=== PATIENT | male | born 1970 | race Caucasian/White ===

== ENCOUNTER → 2018-08-31 15:26 | Outpatient (REF) | payer OTHER, SELFPAY ==
[2018-08-31 15:47] LABS: Influenza A and B by PCR Rapid Negative (Negative)
== END ==
LOC: LAB 15:26
PROVIDERS: Family Provider Family Medicine; PCP Family Medicine; Visit Provider Family Medicine
DX: R50.9 Fever, unspecified (principal)
CPT/HCPCS: 87400

== ENCOUNTER → 2020-11-04 08:52 | Outpatient (CLI) | payer OTHER, SELFPAY ==
[2020-11-04] MEDS: COVID-19 VACC #1, MRNA(MOD) 100 MCG/0.5 ML VIAL IM (09:04)
== END ==
PROVIDERS: Visit Provider Internal Medicine
DX: Z23 Encounter for immunization (principal)
CPT/HCPCS: 0011A; 91301

== ENCOUNTER → 2020-12-03 09:06 | Outpatient (CLI) | payer OTHER, SELFPAY ==
[2020-12-03] MEDS: COVID-19 VACC #2, MRNA(MOD) 100 MCG/0.5 ML VIAL IM (09:12)
== END ==
PROVIDERS: Visit Provider Internal Medicine
DX: Z23 Encounter for immunization (principal)
CPT/HCPCS: 0012A; 91301

== ENCOUNTER → 2020-12-24 10:14 | Outpatient (CLI) | payer OTHER, SELFPAY ==
[2020-12-24 12:21] LABS: COVID19 -Nasal RAPID Negative (Negative)
== END ==
PROVIDERS: Visit Provider Student in an Organized Health Care Education/Training Program
DX: Z01.812 Encounter for preprocedural laboratory examination (principal); Z20.822 Contact with and (suspected) exposure to COVID-19
CPT/HCPCS: 87635

== ENCOUNTER 2020-12-26 15:02 | Day surgery (SDC) | payer OTHER, SELFPAY ==
--- NOTE | 2020-12-26 | PATH_ITS ---
[facility] Accession Number: [id number] . 01 Material submitted: . PART A: colon - ASCENDING COLON POLYP 6MM, 2MM PART B: colon - ASCENDING COLON POLYP 1CM . 02 Diagnosis: A. Ascending Colon, Polyp 6 mm, 2 mm, Biopsy: Tubular adenoma in two of four fragments. . B. Ascending Colon, Polyp 1 cm, Biopsy: Tubular adenoma. [facility] 12/30/2020 1548 Local . 02 Electronically signed: . Luciana Tucker MD, Pathologist NPI- [id number] . 01 Gross description: . A. The specimen is received in formalin, labeled ascending colon polyp, and consists of four duff-pink fragments of soft tissue measuring 0.6 x 0.6 x 0.3 cm in aggregate. The specimen is entirely submitted in cassette A1. B. The specimen is received in formalin, labeled ascending colon polyp, and consists of two duff-pink fragments of soft tissue measuring 0.5 x 0.5 x 0.2 cm in aggregate. The specimen is trisected and entirely submitted in cassette B1. ([id number]) /[facility] 12/27/2020 1401 Local . 02 Pathologist provided ICD-10: D12.2 . 02 CPT . 182833, [id number] Performed at: 01 [facility] Cyt[facility] [address], [place], [place] [id number] MD Roger De La Garza MD Phone: [phone] Performed at: 02 [facility] [address] [place], [place] [id number] MD Luciana Tucker MD Phone: [phone]
--- NOTE | 2020-12-26 12:13 | PM.HP.1 ---
History of Present Illness History of Present Illness Date Patient Seen: 12/26/20 Chief complaint: SDC Narrative: 50 Years Old Male seen today for consideration of a screening colonoscopy. There have been no lower GI symptoms suggesting disease such as change in bowel habits, bleeding, abdominal pain or anemia. There's been no family history of colon cancer or colon polyps. Overall health issues have been stable, including no major cardiac events for at least 6 weeks. 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 Patient History Medical History (Updated 12/16/20 @ 11:31 by Chris Sanchez DO) Essential hypertension Hypertriglyceridemia Major depressive disorder, recurrent episode, severe with anxious distress Obstructive sleep apnea Type 2 diabetes mellitus Family & Social History Tobacco & Substance use: Smoking Status Never smoker Meds Home Medications and Allergies Home Medications Medication Instructions Recorded Confirmed Type atorvastatin [Lipitor] 20 mg PO HS #30 tab 04/27/16 12/26/20 History hydrochlorothiazide 25 mg tablet 25 mg PO DAILY 09/17/19 12/26/20 History losartan 50 mg tablet 100 mg PO QDAY #0 tab 09/17/19 12/26/20 History semaglutide 0.5 mg SUBCUT QWEEK 01/23/20 12/26/20 History glimepiride 4 mg tablet See Rx Instructions PO BID #30 tab 12/16/20 12/26/20 History insulin glargine 100 unit/mL 45 unit SUBCUT BID ml 12/16/20 12/26/20 History subcutaneous solution lorazepam 2 mg tablet 2 mg PO DAILY PRN #30 tab 12/16/20 12/26/20 Rx metformin 500 mg tablet,extended See Rx Instructions PO BID tab 12/16/20 12/26/20 History release 24 hr mirtazapine 30 mg tablet 30 mg PO DAILY #90 tab 12/16/20 12/26/20 Rx zolpidem 10 mg tablet 10 mg PO BEDTIME PRN #30 tab 12/16/20 12/26/20 Rx venlafaxine 150 mg 450 mg PO DAILY #90 cap 12/18/20 12/26/20 Rx capsule,extended release 24 hr Allergies Allergy/AdvReac Type Severity Reaction Status Date / Time No Known Drug Allergies Allergy Verified 12/26/20 15:44 Review of Systems Review of Systems ROS: Yes All systems reviewed with the patient and are negative except as otherwise documented Exam Narrative Exam Narrative: General: well developed, well nourished, in no acute distress, Head: normocephalic and atraumatic, Lungs: normal respiratory effort, clear bilaterally to auscultation, no wheezes rales or rhonchi. (unchanged from 09/25/2020) Heart: normal rate and regular rhythm, no murmurs, rubs, gallops, or clicks, Abdomen: abdomen soft and non-tender without masses, organomegaly, or abdominal wall hernias, bowel sounds positive. (unchanged from 09/25/2020) Skin: intact without suspicious lesions or rashes, Psych: alert and cooperative; normal mood and affect; normal attention span and concentration; cognition, remote and recent memory appear to be intact, Assessment & Plan Assessment & Plan narrative: 1. Screening for colon cancer Plan for colonoscopy. The nature and character of the procedure as well as anticipated results were discussed. The possibility of not completing the procedure was also discussed. Possible complications including aspiration pneumonia, bleeding, perforation and reaction to medications either for sedation or preparation and missed lesions were discussed. Questions were answered and proceeding to the colonoscopy was elected. Informed consent signed. I sincerely appreciate the referral allowing me to participate in this patient's care. Please contact me with any questions or concerns. 2. Morbid obesity Due to obesity and alcohol dependence, will consult MD anesthesia for this high risk patient.
--- NOTE | 2020-12-26 12:17 | PM.OP.ENDO ---
Operative Date/Time/Diagnoses Date of procedure: 12/26/20 Procedure Notes SCOAP/Timeout: 4:14 p.m. Procedure in detail: ENDOSCOPIST: Olive Hayes MD Anesthesiologist: Dr. Sims Sedation start time: 4:15 p.m. Sedation end time: 4:44 p.m. PROCEDURE: Colonoscopy with cold snare and methylene blue lift INDICATIONS: 1. Screening for colon cancer MEDICATION: Levsin 0.125 mg sublingual, incremental doses of Versed and fentanyl until appropriate level sedation achieved. ASA CLASS: 3 CECAL WITHDRAWAL TIME: 23 minutes COMPLICATIONS: None. EXTENT OF PROCEDURE: Cecum. QUALITY OF PREP: Good with portions of liquid stool. PROCEDURE: Prior to insertion of the colonoscope, a digital rectal examination was accomplished with circumferential palpation of the distal rectal mucosa without significant findings being noted. The high-definition colonoscope was passed into the rectum in the usual fashion and advanced over to the cecum without difficulty. The ileocecal valve, appendiceal stoma, and medial wall all could be inspected and no abnormalities were seen. ASCENDING COLON: As the colonoscope was withdrawn, care was taken to expose and inspect the haustral folds and 3 polyps were seen. The 2 smaller polyps at 2 and 6 mm were removed with cold biopsy forceps, excellent hemostasis. The 1 cm polyp was lifted with methylene blue and removed with cold snare, excellent hemostasis. Minor diverticulosis, pancolonic. HEPATIC FLEXURE: Minor diverticulosis, otherwise, no polyps, or other abnormalities. TRANSVERSE COLON: Minor diverticulosis, otherwise, no polyps, or other abnormalities. DESCENDING COLON: Minor diverticulosis, otherwise, no polyps, or other abnormalities. SIGMOID COLON: Minor diverticulosis, otherwise, no polyps, or other abnormalities. RECTUM: Normal. J maneuver was produced. There was no significant perianal disease. The J maneuver was broken. The remainder of the rectum was inspected and there was no external hemorrhoid disease. The scope was withdrawn. IMPRESSION: 1. Ascending polyps x3, 2 and 6 mm polyps removed with cold biopsy forceps. 1 cm polyp lifted with methylene blue and removed with cold snare. 2. Minor diverticulosis, pancolonic PLAN: 1. Follow-up in clinic status post pathology results. The possibility of a missed lesion including a malignancy has been discussed with the patient previously. Potential alarm symptoms have been discussed and should be reported immediately.
[2020-12-26] MEDS: LACTATED RINGERS 1,000 ML 200 ML IV (15:21)
[2020-12-26] MEDS: HYOSCYAMINE 0.125 MG TABLET PO (15:21)
[2020-12-26 15:36] VITALS: BP 164/98; PULSE 88; RESP 20; TEMP 36.1; O2SAT 98; BMI 44.3
[2020-12-26] MEDS: METHYLENE BLUE 50 MG/10 ML VIAL 10 MG IV (16:36)
[2020-12-26 16:51] VITALS: BP 139/68; PULSE 90; RESP 16; TEMP 36.4; O2SAT 96
[2020-12-26 16:57] VITALS: BP 130/86; PULSE 86; RESP 12; O2SAT 98
[2020-12-26 17:00] VITALS: BP 145/100; PULSE 87; RESP 14; O2SAT 97
--- NOTE | 2020-12-26 17:06 | SUR.PHASEI ---
Report given to Arpita JACKSON .
[2020-12-26 17:07] VITALS: BP 139/91; PULSE 80; RESP 18; TEMP 36.3; O2SAT 98
[2020-12-26 17:15] VITALS: BP 140/88; PULSE 85; RESP 15; O2SAT 95
== END 2020-12-26 17:23 | disposition home or self-care (01) ==
PROVIDERS: PCP Student in an Organized Health Care Education/Training Program; Referring Provider Student in an Organized Health Care Education/Training Program; Visit Provider Student in an Organized Health Care Education/Training Program
PROC: 0DJD8ZZ Inspection of Lower Intestinal Tract, Via Natural or Artificial Opening Endoscopic (ICD-10-PCS; CPT 45378; principal; 2020-12-26 16:00)
DX: Z12.11 Encounter for screening for malignant neoplasm of colon (principal); E66.9 Obesity, unspecified; I10 Essential (primary) hypertension; E11.9 Type 2 diabetes mellitus without complications; G47.33 Obstructive sleep apnea (adult) (pediatric); Z79.4 Long term (current) use of insulin; K57.30 Diverticulosis of large intestine without perforation or abscess without bleeding; D12.2 Benign neoplasm of ascending colon
CPT/HCPCS: 45381; 45385; 36415; J2250; J2704; Q9968

== ENCOUNTER 2021-01-26 23:28 | Inpatient (IN) | payer OTHER, SELFPAY ==
[2021-01-26 23:25] VITALS: BP 146/78; PULSE 100; RESP 20; TEMP 36.9; O2SAT 98
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
[2021-01-26 23:47] LABS: Add Manual Diff / Slide Review NO; Basophils Absolute Auto 100 /uL (0-100); Basophils Percent Auto 0.7 % (0-2); Eosinophils Absolute Auto 200 /uL (0-450); Eosinophils Percent Auto 1.3 % (2-4); Hematocrit 43.4 % (41-53); Hemoglobin 14.6 g/dL (13.5-17.5); Lymphocytes Absolute Auto 4100 /uL (1100-4500); Lymphocytes Percent Auto 32.3 % (25-40); Mean Corpuscular HGB Conc 33.7 % (30-36); Mean Corpuscular Hemoglobin 30.2 PG (26-34); Mean Corpuscular Volume 89.8 fL (80-100); Monocytes Absolute Auto 700 /uL (0-900); Monocytes Percent Auto 5.8 % (3-14); Neutrophils Absolute Auto 7500 /uL (1500-7000); Neutrophils Percent Auto 59.9 % (50-75); Platelet Count 299 X10^3/uL (150-400); Red Blood Cell Count 4.84 X10^6/uL (4.5-5.9); Red Cell Distribution Width 14.8 % (11.6-14.8); White Blood Cell Count 12.6 X10^3/uL (4.5-11.0)
[2021-01-26] MEDS: TET,DIPH,PERTUSS(ACELL),VAC/PF 0.5 ML SYRINGE IM (23:52)
[2021-01-26] MEDS: FAMOTIDINE 20 MG/2 ML VIAL IV (23:54)
[2021-01-26] MEDS: SODIUM CHLORIDE 0.9% 1,000 ML 125 ML IV (23:54)
[2021-01-26] MEDS: TRANEXAMIC ACID 1,000 MG in SODIUM CHLORIDE 0.9% 100 ML 200 ML IV (23:54)
[2021-01-26] MEDS: CEFAZOLIN 1 GM VIAL 2 GM IV (23:55)
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
[2021-01-26 23:57] LABS: Alanine Aminotransferase 26 IU/L (<50); Albumin 4.4 g/dL (3.5-5.0); Albumin Globulin Ratio 1.4 (1.0-2.8); Alkaline Phosphatase 86 U/L (38-126); Aspartate Aminotransferase 29 IU/L (17-59); Bilirubin Total 0.5 mg/dL (0.2-1.3); Blood Urea Nitrogen 13 mg/dL (9-20); Calcium 9.6 mg/dL (8.4-10.2); Carbon Dioxide 23 mmol/L (22-32); Chloride 101 mmol/L (98-107); Creatine Kinase 93 U/L (55-170); Estimated Glomerular Filt Rate > 60.0 mL/min (>60); Globulin 3.2 g/dL (1.7-4.1); Glucose 124 mg/dL (70-100); HEMOLYSIS < 15 (0-50); Magnesium 1.7 mg/dL (1.6-2.3); Potassium 3.5 mmol/L (3.4-5.1); Sodium 140 mmol/L (137-145); Total Protein 7.6 g/dL (6.3-8.2)
[2021-01-27] VITALS (30 sets, daily range): BP systolic 97–164; BP diastolic 56–101; PULSE 102–123; RESP 15–24; TEMP 35.9–36.9; O2SAT 90–99; BMI 43.9
[2021-01-27 00:03] LABS: Acetaminophen < 10 ug/mL (10-30); Ethanol (ETOH) 44 mg/dL; Salicylate < 1.0 mg/dL (<20)
[2021-01-27 00:09] LABS: Troponin I < 0.012 ng/mL (0.01-0.034)
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
--- NOTE | 2021-01-27 00:51 | PC.NURSE ---
pt placed on 2 L O2 for comfort at 0030
--- NOTE | 2021-01-27 01:00 | SUR.OPER ---
Supine on padded OR bed, head on pillow, arms secured on padded arm boards at <90 degrees abduction, legs uncrossed, safety belt at thigh, tape over blanket over lower legs.
[2021-01-27] MEDS: BUPIVACAINE 0.25% (PF) VIAL 30 ML INJ (01:08)
[2021-01-27] MEDS: LACTATED RINGERS 1,000 ML 42 ML IV ×2 (01:10→02:00)
[2021-01-27 01:11] LABS: COVID19 - ADMIT (NP swab/PCR) Negative (Negative)
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
--- NOTE | 2021-01-27 02:16 | SUR.PHASEI ---
0150 Report called to floor, Pt arouses easily, mostly sleeping. IV sites WNL x2 (bilaterally). Resp unlabored, Denies pain, surgical site CDI
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
--- NOTE | 2021-01-27 05:39 | PC.NURSE ---
0230- Patient arrived via bed from [facility]. Patient has a simple mask saturation is at 98%. Simple mask removed and patient placed on 3l cannula. Patient states he sleeps with CPap at home. Patient is drowsy but wakes easily. Post op vitals in process. Admit complete except medication reconcile and skin assessment. Patient advised he is on Suicide Precautions because he attempted to harm himself. Patient denies any plans or feelings to commit self harm at this time. Will monitor. 1:1 sitter at bedside.
[2021-01-27] MEDS: hydroCHLOROthiazide 25 MG TABLET PO (09:22)
[2021-01-27] MEDS: VENLAFAXINE ER 75 MG CAP 450 MG PO (09:22)
[2021-01-27] MEDS: LOSARTAN 50 MG TABLET 100 MG PO (09:22)
[2021-01-27] MEDS: MIRTAZAPINE 15 MG TABLET 30 MG PO (09:22)
[2021-01-27] MEDS: INSULIN LISPRO 100 UNIT/ML 3ML VIAL SUBCUT ×4 (09:57→21:41)
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
--- NOTE | 2021-01-27 14:05 | PC.NURSE ---
1300 [facility] pharmacy for medication reconciliation. Message system stated their staff was out to lunch until 1400. Will try again at that time.
[2021-01-27 14:09] LABS: Appearance Urine UA CLEAR; Bilirubin Urine UA NEGATIVE (NEGATIVE); Color Urine UA YELLOW; Glucose Urine UA 1+ g/dL (Negative); Ketones Urine UA TRACE (NEGATIVE); Leukocyte Esterase Urine UA NEGATIVE (NEGATIVE); Nitrite Urine UA NEGATIVE (Negative); Occult Blood Urine UA 2+ (Negative); Protein Urine UA 1+ (Negative); Urobilinogen Urine UA 0.2 E.U./dL (0.2); pH Urine UA 5.5 (4.5-8.0)
[2021-01-27 14:16] LABS: UR Morphine/Opiate cutoff 300 Negative (Negative); Ur Creatinine Normal (Normal); Ur Specific Gravity Normal (Normal); Urine Amphetamines Negative (Negative); Urine Barbiturates Negative (Negative); Urine Benzodiazepines Positive (Negative); Urine Cocaine Positive (Negative); Urine MDMA Negative (Negative); Urine Methadone Negative (Negative); Urine Methamphetamines Negative (Negative); Urine Oxycodone Negative (Negative); Urine Phencyclidine Negative (Negative); Urine Tetrahydrocannabinol Negative (Negative); Urine Tricyclic Antidepressant Negative (Negative); Urine pH Normal (Normal)
[2021-01-27 14:29] LABS: RBC Urine 5-10/HPF (0-5/HPF); WBC Urine 5-10/HPF (0-5/HPF)
[2021-01-27 14:30] LABS: Bacteria Urine Few (2-10); Culture Indicated Urine Specimen Cultured; Hyaline Casts Urine 1-5/LPF; Mucus Urine 1+ (Negative); Squamous Epithelial Cell Urine 1-5 /HPF (0-5/HPF)
--- NOTE | 2021-01-27 18:20 | CM.DPC ---
POULTRY SEXER Note: Reviewed chart. Patient is a 50yr old male admitted to [facility] after suicide attempt. Patient actively sees Dr. Sanchez of psychiatry whom saw patient today (see note for details). POULTRY SEXER spoke briefly with Dr. Sanchez and she indicates inpatient psychiatry indicated. POULTRY SEXER placed call to [facility] and faxed referral to [facility] at [phone]. Per facility they can accept this evening if they receive updated blood alcohol. POULTRY SEXER spoke with RN and lab draw ordered. In addition, Dr. Rios made aware of potential d/c this pm. [facility] given number to call nurses station for report. Met with patient and he is aware and agreeable to plan to go to [facility]. P: Hopeful patient can transfer to [facility] tonight. RN/Charge made aware and given instructions. In addition ED POULTRY SEXER aware and is available to answer questions. ROYER King
[2021-01-27 19:17] LABS: Ethanol (ETOH) < 10 mg/dL
[2021-01-27] MEDS: ZOLPIDEM 5 MG TABLET 10 MG PO (21:40)
[2021-01-27] MEDS: LORazepam 1 MG TABLET 2 MG PO (21:40)
--- NOTE | 2021-01-28 00:14 | PC.NURSE ---
Discharge Plan Patient with pending discharge plan to facility in [facility] per care management. Charge nurse attempting to discharge patient to facility per care managements instructions. Charge nurse contacted facility in [facility] to facilitate patient transport. Per charge nurse facility unaware of patient. Per care managements note referral faxed to [facility] facility. Per [facility] facility, [facility] able to intake patient until 0000. [facility] currently unable and message left with facility staff to call charge nurse for placement and to fax patient forms. No call back to charge nurse by end of evening shift. Time currently 0021, Dr Rios aware of patient staying overnight, ETOH @ 1855 less than 10, CIWA 2 @ 2300, 2mg of PO Ativan given at 2140 per patients home routine and Dr Crockett recommendation, Ativan available per CIWA if change in patient status. Will update oncoming nurse at 0300 to follow-up with care management.
[2021-01-28 03:28] VITALS: BP 135/60; PULSE 99; RESP 15; TEMP 36.8; O2SAT 99
[2021-01-28 07:20] VITALS: O2SAT 98
[2021-01-28 08:00] VITALS: BP 148/88; PULSE 111; RESP 22; TEMP 36.8; O2SAT 98
[2021-01-28 08:37] VITALS: BP 148/88
[2021-01-28] MEDS: LOSARTAN 50 MG TABLET 100 MG PO (08:37)
[2021-01-28] MEDS: VENLAFAXINE ER 75 MG CAP 450 MG PO (08:37)
[2021-01-28] MEDS: hydroCHLOROthiazide 25 MG TABLET PO (08:38)
[2021-01-28] MEDS: INSULIN LISPRO 100 UNIT/ML 3ML VIAL SUBCUT ×2 (08:38→12:07)
[2021-01-28] MEDS: MIRTAZAPINE 15 MG TABLET 30 MG PO (08:38)
[2021-01-28 12:00] VITALS: BP 151/78; PULSE 107; RESP 18; TEMP 37.1; O2SAT 96
--- NOTE | 2021-01-28 14:58 | CM.DPC ---
DCP Voluntary MH placement Cont: Per Surgeon, pt remains medically stable for d/c to voluntary MH tx unit and completed discharge and per pt's established Psychiatrist who was kindly able to come and consult with pt in the hospital, recommendation remains Inpt MH tx. SW called previously faxed [facility] and some confusion as [facility] staff under the impression that pt was accepted pending his BAL. But per [facility] staff, pt still in the review process. RN called [facility] to provide update on pt's medical stability and no wound care needs and [facility] states their team has declined pt at their facility as they have concerns with his wound. RN attempted to discuss further but [facility] not able to accept. SW called [facility] MH unit and they likely have an opening and willing to review and SW provided some information via phone and then faxed pt's clinicals to their fax [phone] and provided SW contact number as well as main nurses station in case review is complete after MEDICAL ASSISTANT SECRETARY shift. RN states she has updated Surgeon and Psychiatrist on pt's denial at [facility]. Psychiatrist will try to meet bedside with pt this evening to confirm if he still is a risk to return to the community or if he is safe for close follow up if [facility] cannot accept. Plan: SW to follow closely for additional referrals pending triage needs and [facility] review of pt to see if they can accept. Suad Tsai, MEDICAL ASSISTANT SECRETARY
[2021-01-28 16:00] VITALS: BP 151/70; PULSE 109; RESP 22; TEMP 36.4; O2SAT 95
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
--- NOTE | 2021-01-28 17:28 | PC.NURSE ---
in to see patient. Spoke with him about safety and plan for the next month and patient agreeable. Patient with discharge orders to go home. Went over Discharge education and instructions with patient and given to him. Patients daughter here to take patient home.
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
--- NOTE | 2021-01-29 07:44 | CM.DPNOTE ---
Late entry: Dr. Hennessy left a vm wanting to know an update from CM and if another consult is needed. She was into see pt before he was discharged. She said she will be out of the office for the rest of the week. I called Psych and left a vm saying pt was dc at 1740 home. Tammy Best CM Asst.
== END 2021-01-28 17:40 | disposition home or self-care (01) | DRG 982 ==
LOC: ED 23:47 → AC 01-27 00:55 → ICU 01-27 02:50 → AC 01-28 09:14
PROVIDERS: Admitting Provider Surgery; Emergency Provider Emergency Medicine; PCP Student in an Organized Health Care Education/Training Program; Visit Provider Surgery
PROC: 0W360ZZ Control Bleeding in Neck, Open Approach (ICD-10-PCS; principal; 2021-01-27 00:15)
DX: S11.81XA Laceration without foreign body of other specified part of neck, initial encounter (principal); F33.9 Major depressive disorder, recurrent, unspecified; Z68.41 Body mass index [BMI] 40.0-44.9, adult; E11.9 Type 2 diabetes mellitus without complications; E66.01 Morbid (severe) obesity due to excess calories; I10 Essential (primary) hypertension; G47.33 Obstructive sleep apnea (adult) (pediatric); F17.210 Nicotine dependence, cigarettes, uncomplicated; Y92.009 Unspecified place in unspecified non-institutional (private) residence as the place of occurrence of the external cause; Z79.4 Long term (current) use of insulin; Z72.89 Other problems related to lifestyle; X78.8XXA Intentional self-harm by other sharp object, initial encounter; Z20.822 Contact with and (suspected) exposure to COVID-19
CPT/HCPCS: 36415; 80053; 80305; 80320; 80329; 81001; 82550; 82553; 82962; 83735; 84484; 85025; 86850; 86900; 86901; 87086; 87635; 87797; 90471; 90792; 96374; 96375; 99233; 99284; 99291; C9803; 90715; G0480; J0330; J0690; J1100; J1815; J2250; J2405; J2704; J3010

== ENCOUNTER → 2021-09-08 11:44 | Outpatient (CLI) | payer OTHER, SELFPAY ==
[2021-01-27 02:45] VITALS: BMI 43.9
--- NOTE | 2021-09-08 | DI.RAD.S_ITS ---
PROCEDURE: XR KUB INDICATIONS: KIDNEY STONE TECHNIQUE: One view of the abdomen acquired. COMPARISON: None. FINDINGS: Surgical changes and devices: None. Bowel: Bowel gas pattern is normal. Soft tissues: Small calcifications are seen projecting in the region of left renal fossa and measures 4-5 mm in size. No right-sided abdominal calcification is seen. Visualized solid organ contours appear normal in size. Bones: No suspicious bony lesions. IMPRESSION: Finding is suspicious for left-sided renal calculi as above. No bowel obstruction or gross free air. Dictated by: Marlo Dsouza M.D. on 09/09/2021 at 8:18 Approved by: Marlo Dsouza M.D. on 09/09/2021 at 8:19
== END ==
PROVIDERS: PCP Student in an Organized Health Care Education/Training Program; Referring Provider Student in an Organized Health Care Education/Training Program; Visit Provider Student in an Organized Health Care Education/Training Program
DX: N20.0 Calculus of kidney (principal)
CPT/HCPCS: 74018

== ENCOUNTER → 2022-04-16 09:03 | Outpatient (CLI) | payer OTHER, SELFPAY ==
[2021-01-27 02:45] VITALS: BMI 43.9
--- NOTE | 2022-04-16 09:05 | DI.RAD.S_ITS ---
PROCEDURE: XR KUB INDICATIONS: kidney stone TECHNIQUE: One view of the abdomen acquired. COMPARISON: [facility], , XR KUB, 09/08/2021, 11:50. FINDINGS: Surgical changes and devices: None. Bowel: Bowel gas pattern is normal. Soft tissues: There are two calcifications projecting over the expected location of the left upper to mid kidney, the larger measuring 5 mm. These are stable in position and relatively stable in size compared to the prior study. No definite right-sided or pelvic calcifications. Bones: No suspicious bony lesions. Mild levoscoliosis. IMPRESSION: 1. Stable size and position of probable left intrarenal calculi. Dictated by: Diana Kohler M.D. on 04/16/2022 at 12:50 Approved by: Diana Kohler M.D. on 04/16/2022 at 12:53
[2022-04-16 11:08] LABS: Uric Acid 2.8 mg/dL (3.5-8.5)
[2022-04-17 07:41] LABS: Calcium 8.7 mg/dL (8.7-10.2); Parathyroid Hormone, Intact 39 pg/mL (15-65)
== END ==
PROVIDERS: PCP Family Medicine; Referring Provider Specialist; Visit Provider Specialist
DX: N20.0 Calculus of kidney (principal)
CPT/HCPCS: 36415; 74018; 82310; 83970; 84550